=== PATIENT | male | born 1950 | race Caucasian/White ===

== ENCOUNTER 2020-03-09 00:13 | Observation (INO) | payer MEDICARE, SELFPAY ==
[2020-03-09] VITALS (32 sets, daily range): BP systolic 125–169; BP diastolic 52–77; PULSE 47–59; RESP 10–26; TEMP 36.1–36.6; O2SAT 90–100; BMI 55.2
[2020-03-09] MEDS: SODIUM CHLORIDE 0.9% IV 1,000 ML 999 ML IV CONT (01:11)
[2020-03-09] MEDS: ONDANSETRON INJ 4 MG/2 ML VIAL IV PUSH (01:11)
[2020-03-09 01:28] LABS: Basophils Percent Auto 0.3 % (0.2-1.2); Eosinophils Absolute Auto 0.1 K/mm3 (0-0.3); Eosinophils Percent Auto 1.5 % (0-4.4); Hematocrit 29.2 % (42.0-52.0); Hemoglobin 9.8 g/dL (14.0-18.0); Immature Granulocyte Absolute 0.04 K/mm3 (0.00-0.031); Immature Granulocyte Percent A 1.2 % (0-0.5); Immature Platelet Fraction Pct 3.3 % (0.9-11.2); Lymphocytes Absolute Auto 0.53 K/mm3 (0.9-3.2); Lymphocytes Percent Auto 15.5 % (18.3-44.2); Mean Corpuscular HGB Conc 33.6 g/dl (32-36); Mean Corpuscular Volume 89.3 fl (80-100); Mean Platelet Volume 11.1 fl (7.4-10.4); Monocytes Absolute Auto 0.3 K/mm3 (0.1-0.6); Monocytes Percent Auto 8.8 % (2.6-8.5); Neutrophils Absolute Auto 2.5 K/mm3 (1.3-6.7); Neutrophils Percent Auto 72.7 % (45.5-73.1); Platelet Count Result 89 k/mm3 (150-375); Red Blood Count 3.27 M/mm3 (4.6-6.20); White Blood Count 3.4 K/mm3 (4.5-10.0)
[2020-03-09 01:41] LABS: Alanine Aminotransferase 23 U/L (4-50); Albumin Level 3.4 g/dL (3.5-5.1); Alkaline Phosphatase 55 U/L (38-126); Anion Gap 7 mmol/L (8-16); Aspartate Amino Transferase 28 U/L (17-59); Bilirubin,Total 0.3 mg/dL (0.2-1.3); Blood Urea Nitrogen 45 mg/dL (9-20); Calcium 7.8 mg/dL (8.4-10.2); Carbon Dioxide 21 mmol/L (22-30); Chloride 106 mmol/L (98-107); Estimated CRCL calculation 39 ml/min; Estimated Glomerular Filt Rate 27; Glucose 122 mg/dL (75-110); Lipase 153 U/L (23-300); Potassium 4.3 mmol/L (3.4-5.0); Sodium 134 mmol/L (137-145)
--- NOTE | 2020-03-09 02:05 | PC.NURSE ---
Patient's went home to obtain patient's labwork.
--- NOTE | 2020-03-09 03:09 | ED.NAVMDI ---
HPI - Nausea/Vomiting/Diarrhea General Chief complaint: Nausea/Vomiting/Diarrhea Stated complaint: n/v Time Seen by Provider: 03/09/20 00:47 History of Present Illness HPI Narrative: Patient is a 70-year-old male who presents ER with nausea/vomiting/diarrhea. Ongoing for 2 days. Became so weak he was unable to walk or stand this evening. No blood in his stool or emesis. He has not been on antibiotics. No known sick contacts. Patient does have history of chronic kidney disease and sees a safety associate at [facility]. No alleviating factors for his GI symptoms this evening. Related Data Home Medications Medication Instructions Recorded Confirmed atorvastatin 20 mg PO HS 03/09/20 carvedilol 25 mg PO BID 03/09/20 cholecalciferol (vitamin D3) 25 mcg PO DAILY 03/09/20 [Vitamin D3] clonidine HCl 0.1 mg PO DAILY 03/09/20 furosemide 20 mg PO DAILY 03/09/20 lisinopril 40 mg PO DAILY 03/09/20 loperamide [Anti-Diarrheal 2 mg PO PRN 03/09/20 (loperamide)] dlpggwyxmhro-mkv-hbwc-FA-vit K tablet PO 03/09/20 [Adults Multivitamin] omega 9-xrg-iog-fish oil [Fish Oil] 1 cap PO DAILY 03/09/20 spironolactone 50 mg PO QAM 03/09/20 torsemide 40 mg PO QAM 03/09/20 Allergies Allergy/AdvReac Type Severity Reaction Status Date / Time No Known Allergies Allergy Verified 03/09/20 05:26 Review of Systems Review of Systems: All systems reviewed & are unremarkable except as noted in HPI and below Constitutional: Constitutional: Reports weakness Cardiovascular: Cardiovascular: Denies chest pain and Denies leg edema Respiratory: Respiratory: Denies cough and Denies dyspnea Gastrointestinal: Gastrointestinal: Denies abdominal pain, Reports diarrhea, Reports nausea and Reports vomiting PMFSH Past Medical History Medical History (Updated 03/09/20 @ 05:46 by Evaristo Caro MD) Chronic kidney disease Colon cancer Hypercholesterolemia Hypertension Social History Social History (Updated 03/09/20 @ 03:17 by Evaristo Caro MD) Smoking status: Former smoker Gender identity (if verbalized by the patient): Male Exam Narrative: Exam Narrative: GENERAL: Well-appearing, well-nourished, and in no acute distress. HEAD: Normocephalic, atraumatic. EYES: PERRL and EOMI. ENT: Mucous membranes moist. CHEST: Clear to auscultation. No respiratory distress. HEART: Regular rate and rhythm. Normal peripheral pulses. ABDOMEN: Soft, nontender, nondistended. EXTREMITIES: Normal range of motion. No edema. SKIN: Warm, dry, no rash. NEURO: Alert and oriented x3. Course Course Emergency Course: Patient's went home and obtained lab work. Looks like his creatinine typically is 1.5-1.7. Certainly appears patient is an acute renal failure. Will plan admission for hydration. Vital Signs Vital signs: Vital Signs Temperature 97.0 F L 03/09/20 00:13 Pulse Rate 55 L 03/09/20 00:13 Respiratory Rate 18 03/09/20 00:13 Blood Pressure 125/55 L 03/09/20 00:13 Pulse Oximetry 100 03/09/20 00:13 Temperature 97.9 F 03/09/20 05:02 Pulse Rate 56 L 03/09/20 05:02 Respiratory Rate 16 03/09/20 05:02 Blood Pressure 149/64 H 03/09/20 03:55 Pulse Oximetry 97 03/09/20 05:02 MDM - Nausea/Vomiting/Diarrhea Lab Data Result diagrams: 03/09/20 01:20 03/09/20 01:20 Labs: Lab Results 03/09/20 03/09/20 Range/Units 01:20 01:20 WBC 3.4 L (4.5-10.0) K/mm3 RBC 3.27 L (4.6-6.20) M/mm3 Hgb 9.8 L (14.0-18.0) g/dL Hct 29.2 L (42.0-52.0) % MCV 89.3 (80-100) fl MCH 30.0 (26-34) pg MCHC 33.6 (32-36) g/dl RDW 14.0 (11.5-14.5) % Plt Count 89 L (150-375) k/mm3 MPV 11.1 H (7.4-10.4) fl Immature Gran % (Auto) 1.2 H (0-0.5) % Neut % (Auto) 72.7 (45.5-73.1) % Lymph % (Auto) 15.5 L (18.3-44.2) % [place] % (Auto) 8.8 H (2.6-8.5) % Eos % (Auto) 1.5 (0-4.4) % Baso % (Auto) 0.3 (0.2-1.2) % Lymph # (Auto) 0.53 L (0.9
--- NOTE | 2020-03-09 05:18 | ADMGEN ---
This patient, Jonathon Perla, was admitted to Medical Room 348-01. Patient/family oriented to hospital policies and general routines including ID bracelet, bed and alarms, visiting hours, pain management, procedures, bathroom and other care routines, personal items, smoking policy, room service/diet, and visiting hours. Valuables list has been completed. Information on how to activate the Rapid Response Team has been discussed. Patient/Family are encouraged to report perceived risks to care and to ask questions if they do not understand what they are told or what they should do.
[2020-03-09] MEDS: SODIUM CHLORIDE 0.9% IV 1,000 ML 125 ML IV CONT (06:16)
--- NOTE | 2020-03-09 11:00 | PM.IMHP ---
H&P: HPI History of Present Illness Date/Time: 03/09/20 11:00 Chief complaint: Acute on Chronic Renal Failure Narrative: Jonathon Perla is a 70yo male with hx of colon cancer and CKD here for nausea/vomiting/diarrhea. Ongoing for 2 days. Became so weak he was unable to walk or stand this evening. No blood in his stool or emesis. He has not been on antibiotics. No known sick contacts. Patient does have history of chronic kidney disease and sees a recordak operator at [facility]. No alleviating factors for his GI symptoms this evening. Review of Systems Review of Systems: All systems reviewed & are unremarkable except as noted in HPI and below PMFSH Past Medical History Medical History (Updated 03/09/20 @ 05:46 by Evaristo Caro MD) Chronic kidney disease Colon cancer Hypercholesterolemia Hypertension Family History Family History (Updated 03/09/20 @ 05:58 by Melita Howell RN) Father Cancer Heart attack Mother Diabetes mellitus Social History Social History (Updated 03/09/20 @ 03:17 by Evaristo Caro MD) Smoking status: Former smoker Alcohol intake: current Drinks per week: 1 Substance use: never Substance use type: does not use Gender identity (if verbalized by the patient): Male Sexual Orientation (if Verbalized by the Patient): Straight or Heterosexual Spiritual care concerns: No Meds Home Medications and Allergies Home Medications Medication Instructions Recorded Confirmed Type atorvastatin 40 mg PO HS 03/09/20 03/09/20 History carvedilol 25 mg PO BID 03/09/20 03/09/20 History cholecalciferol (vitamin D3) 25 mcg PO DAILY 03/09/20 03/09/20 History [Vitamin D3] clonidine HCl 0.1 mg PO BID 03/09/20 03/09/20 History furosemide 20 mg PO DAILY 03/09/20 03/09/20 History lisinopril 40 mg PO HS 03/09/20 03/09/20 History loperamide [Anti-Diarrheal 2 mg PO DAILY 03/09/20 03/09/20 History (loperamide)] iqbydmlzciyf-qod-obsw-FA-vit K 1 tablet PO DAILY 03/09/20 03/09/20 History [Adults Multivitamin] omega 4-scd-kgb-fish oil [Fish Oil] 1 cap PO DAILY 03/09/20 03/09/20 History spironolactone 50 mg PO QAM 03/09/20 03/09/20 History torsemide 40 mg PO QAM 03/09/20 03/09/20 History Allergies Allergy/AdvReac Type Severity Reaction Status Date / Time No Known Allergies Allergy Verified 03/09/20 05:26 Vital Signs Vital Signs - 24 hr 03/09/20 00:13 03/09/20 00:23 03/09/20 00:30 Temperature 97.0 F L Pulse Rate 55 L 52 L 47 L Respiratory Rate 18 20 10 L Blood Pressure 125/55 L Pulse Oximetry 100 95 90 03/09/20 00:31 03/09/20 00:49 03/09/20 01:00 Temperature Pulse Rate 52 L 52 L 55 L Respiratory Rate 12 16 16 Blood Pressure 130/59 L Pulse Oximetry 98 95 97 03/09/20 01:01 03/09/20 01:11 03/09/20 01:15 Temperature Pulse Rate 52 L 53 L 52 L Respiratory Rate 14 19 17 Blood Pressure 131/60 131/60 Pulse Oximetry 99 95 97 03/09/20 01:31 03/09/20 01:34 03/09/20 01:45 Temperature Pulse Rate 56 L 56 L 55 L Respiratory Rate 10 L 13 15 Blood Pressure 156/69 H Pulse Oximetry 96 97 98 03/09/20 02:00 03/09/20 02:01 03/09/20 02:09 Temperature Pulse Rate 55 L 56 L 54 L Respiratory Rate 16 17 16 Blood Pressure 167/77 H 167/77 H Pulse Oximetry 97 98 97 03/09/20 02:15 03/09/20 02:30 03/09/20 02:31 Temperature Pulse Rate 56 L 56 L 55 L Respiratory Rate 18 17 16 Blood Pressure 169/69 H Pulse Oximetry 96 96 95 03/09/20 02:46 03/09/20 03:02 03/09/20 03:15 Temperature Pulse Rate 55 L 57 L 57 L Respiratory Rate 16 15 15 Blood Pressure Pulse Oximetry 96 99 100 03/09/20 03:32 03/09/20 03:36 03/09/20 03:45 Temperature Pulse Rate 56 L 55 L 53 L Respiratory Rate 20 15 18 Blood Pressure Pulse Oximetry 99 98 97 03/09/20 03:55 03/09/20 04:00 03/09/20 04:15 Temperature Pulse Rate 56 L 54 L 54 L Respiratory Rate 19 26 H 17 Blood Pressure 149/64 H Pulse Oximetry 97 97 97 03/09/20
[2020-03-09 12:08] LABS: Anion Gap 6 mmol/L (8-16); Blood Urea Nitrogen 44 mg/dL (9-20); Calcium 7.5 mg/dL (8.4-10.2); Carbon Dioxide 22 mmol/L (22-30); Chloride 108 mmol/L (98-107); Estimated CRCL calculation 51 ml/min; Estimated Glomerular Filt Rate 33; Glucose 114 mg/dL (75-110); Potassium 4.5 mmol/L (3.4-5.0); Sodium 136 mmol/L (137-145)
--- NOTE | 2020-03-09 12:46 | PM.SD ---
Same Day Admit/Disch: HPI History of Present Illness Chief complaint: Acute on Chronic Renal Failure Narrative: Jonathon Perla is a 70 year old male with history of colon cancer and CKD who is here for nausea, vomiting and diarrhea. Patient has not been feeling well for the past 2-3 days. He has been having nasal congestion and malaise. No fever or chills. No COVID exposure. No anosmia or dysgusia. He has a history of colon cancer with his last colonoscopy was 2 years ago. He did have a slight cough at 1 point but he took cold medicines for this and that resolved. No sick contacts. Last evening patient developed nausea, vomiting and diarrhea. Had multiple episodes of emesis with culminating to dry heaves. He had about 5 bowel movements. No melena or hematochezia. No hematemesis. He has not been on antibiotics recently. He felt very weak. He does have CKD and is on diuretics. He was supposed to be switched from furosemide to torsemide but he states that he has been taking both of these diuretics. Because of the above symptoms patient presented to the emergency room for evaluation. He sees Dr Turpin from [facility] Past Medical History Medical History Chronic kidney disease Colon cancer with resection then XRT and chemo Hypercholesterolemia Hypertension Surgical History Surgical History History of partial surgical removal of colon partial colon resection from 2009 with colostomy that was reversed 6 months later. Family History Family History Father Cancer Heart attack Mother Diabetes mellitus Social History Social History (Updated 03/09/20 @ 13:02 by Jacobo De La Torre MD) Social History: Smoked up to 3ppd before quitting in 2004. Occasional alcohol use. No drug use. Lives with his . Full code. He nominated his to be the individual would make medical decisions for him if he is not able. Smoking status: Former smoker Alcohol intake: current Drinks per week: 1 Substance use: never Substance use type: does not use Gender identity (if verbalized by the patient): Male Sexual Orientation (if Verbalized by the Patient): Straight or Heterosexual Spiritual care concerns: No Same Day Admit/Disch: Med Pre-admit Medications Home Medications Medication Instructions Recorded Confirmed Type atorvastatin 40 mg PO HS 03/09/20 03/09/20 History carvedilol 25 mg PO BID 03/09/20 03/09/20 History cholecalciferol (vitamin D3) 25 mcg PO DAILY 03/09/20 03/09/20 History [Vitamin D3] clonidine HCl 0.1 mg PO BID 03/09/20 03/09/20 History furosemide 20 mg PO DAILY 03/09/20 03/09/20 History lisinopril 40 mg PO HS 03/09/20 03/09/20 History loperamide [Anti-Diarrheal 2 mg PO DAILY 03/09/20 03/09/20 History (loperamide)] htfblktjmezz-wkq-mvfy-FA-vit K 1 tablet PO DAILY 03/09/20 03/09/20 History [Adults Multivitamin] omega 7-wxh-vux-fish oil [Fish Oil] 1 cap PO DAILY 03/09/20 03/09/20 History spironolactone 50 mg PO QAM 03/09/20 03/09/20 History torsemide 40 mg PO QAM 03/09/20 03/09/20 History Exam Narrative: Exam Narrative: AF 97.3 153/52 59 20 99% ra Gen - well-nourished, well-developed male in no acute respiratory distress who is nontoxic-appearing lying semi recumbent in bed HEENT - normocephalic. Atraumatic. Pupils equal round and reactive. Extraocular motions intact. Sclera clear and anicteric. Nares patent. Oropharynx was clear. No oral lesions. Moist mucous membranes. Tongue was midline. Palate todd symmetrically. No facial asymmetry. Neck - neck was thick but supple. No dominant adenopathy, thyromegaly or masses. 2+ carotid upstrokes without bruits. Chest - lungs are clear to auscultation bilaterally. No wheezes or crackles. Breast exam was deferred. CV - heart was regular rate and rhyt
== END 2020-03-09 14:30 | disposition home or self-care (01) ==
LOC: ANHED 01:13 → ANH3MED 05:05
PROVIDERS: Admitting Provider Internal Medicine; Emergency Provider Emergency Medicine; PCP Internal Medicine; Visit Provider Internal Medicine
DX: N17.9 Acute kidney failure, unspecified (principal); I12.9 Hypertensive chronic kidney disease with stage 1 through stage 4 chronic kidney disease, or unspecified chronic kidney disease; N18.9 Chronic kidney disease, unspecified; D61.818 Other pancytopenia; E78.00 Pure hypercholesterolemia, unspecified; Z79.899 Other long term (current) drug therapy; Z85.038 Personal history of other malignant neoplasm of large intestine; Z87.891 Personal history of nicotine dependence; Z92.21 Personal history of antineoplastic chemotherapy; Z92.3 Personal history of irradiation
CPT/HCPCS: 36415; 80048; 80053; 83690; 85025; 85055; 96361; 96374; 99285; G0378; J2405; J7030

== ENCOUNTER 2022-09-22 00:39 | Day surgery (SDC) | payer MEDICARE, SELFPAY ==
[2022-09-08 12:56] VITALS: BMI 54.8
--- NOTE | 2022-09-21 12:55 | PM.HPGS ---
History of Present Illness History of Present Illness Consent: Risks, benefits, and alternatives have been discussed and questions answered. Patient agrees to proceed with procedure. Chief complaint: hx colon polyps Narrative: Jonathon Perla is a 72 year old male who was referred for colon cancer screening. His last colonoscopy was 5 years ago. He has a history of having had colon cancer resected Review of Systems Review of Systems: All systems reviewed & are unremarkable except as noted in HPI and below PMFSH Past Medical History Medical History Chronic kidney disease Colon cancer with resection then XRT and chemo Hypercholesterolemia Hypertension Surgical History Surgical History History of partial surgical removal of colon partial colon resection from 2009 with colostomy that was reversed 6 months later. Family History Family History Father Cancer Heart attack Mother Diabetes mellitus Social History Social History Social History: Smoked up to 3ppd before quitting in 2004. Occasional alcohol use. No drug use. Lives with his . Full code. He nominated his to be the individual would make medical decisions for him if he is not able. Smoking status: Former smoker Tobacco type: cigarettes Alcohol intake: former Drinks per week: 1 Substance use: never Substance use type: does not use Living arrangements: with family Gender identity (if verbalized by the patient): Male Sexual Orientation (if Verbalized by the Patient): Straight or Heterosexual Spiritual care concerns: No Meds Home Medications and Allergies Home Medications Medication Instructions Recorded Confirmed Type atorvastatin 20 mg tablet 80 mg PO HS 03/09/20 09/08/22 History carvedilol 25 mg tablet 25 mg PO BID 03/09/20 09/22/22 History cholecalciferol (vitamin D3) 25 25 mcg PO DAILY 03/09/20 09/08/22 History mcg (1,000 unit) capsule (Vitamin D3) lisinopril 40 mg tablet 40 mg PO HS 03/09/20 09/08/22 History multivit with minerals-iron 18 1 tablet PO DAILY 03/09/20 09/08/22 History mg-folic ac 400 mcg-vit K 25 mcg tablet (Adults Multivitamin) spironolactone 50 mg tablet 100 mg PO QAM 03/09/20 09/08/22 History levothyroxine 50 mcg tablet 50 mcg PO DAILY 03/01/22 09/22/22 History magnesium oxide 400 mg (241.3 mg 400 mg PO DAILY 03/01/22 09/08/22 History magnesium) tablet nifedipine 30 mg tablet,extended 60 mg PO DAILY 03/01/22 09/08/22 History release chlorthalidone 25 mg tablet 25 mg PO DAILY 09/08/22 09/08/22 History pantoprazole 40 mg tablet,delayed 40 mg PO QAM 09/08/22 09/08/22 History release Allergies Allergy/AdvReac Type Severity Reaction Status Date / Time No Known Allergies Allergy Verified 09/22/22 06:21 Exam Resp: Auscultation: clear to auscultation bilaterally Cardio: Rate: regular rate Rhythm: regular rhythm GI: GI Palp: Yes Soft to palpation and No Tenderness to palpation present (GI) Assessment and Plan Assessment and plan (1) Colon cancer screening: Code(s): Z12.11 - Encounter for screening for malignant neoplasm of colon Status: Acute Assessment and Plan: Colonoscopy with possible biopsy or polypectomy or cautery or injection of substances.
[2022-09-22 06:24] VITALS: BMI 52.8
[2022-09-22] MEDS: LACTATED RINGERS 1,000 ML 150 ML IV CONT (06:40)
[2022-09-22 06:41] VITALS: BP 187/74; PULSE 72; RESP 18; TEMP 36.1; O2SAT 99
--- NOTE | 2022-09-22 07:03 | WPDANESEPPF ---
Anes - Initial Pre Proc Eval Procedure: Operation Date: 09/22/22 07:30 Proposed Procedures p Colonoscopy - Nasir Hernandez MD Date/Time: 09/22/22 07:03 Surgeon: Nasir Hernandez MD Pre Op Diagnosis: hx colon polyps Patient Data Age: 72 Gender: M Height: 1.7 m Weight: 153.1 kg Last Vital Signs Temp 36.1 C L 09/22/22 06:41 Pulse 72 09/22/22 06:41 Resp 18 09/22/22 06:41 BP 187/74 H 09/22/22 06:41 Pulse Ox 99 09/22/22 06:41 O2 Del Method Room Air 09/22/22 06:41 Allergies Allergy/AdvReac Type Severity Reaction Status Date / Time No Known Allergies Allergy Verified 09/22/22 06:21 Home Medications Medication Instructions Recorded Confirmed Type atorvastatin 20 mg tablet 80 mg PO HS 03/09/20 09/08/22 History carvedilol 25 mg tablet 25 mg PO BID 03/09/20 09/22/22 History cholecalciferol (vitamin D3) 25 25 mcg PO DAILY 03/09/20 09/08/22 History mcg (1,000 unit) capsule (Vitamin D3) lisinopril 40 mg tablet 40 mg PO HS 03/09/20 09/08/22 History multivit with minerals-iron 18 1 tablet PO DAILY 03/09/20 09/08/22 History mg-folic ac 400 mcg-vit K 25 mcg tablet (Adults Multivitamin) spironolactone 50 mg tablet 100 mg PO QAM 03/09/20 09/08/22 History levothyroxine 50 mcg tablet 50 mcg PO DAILY 03/01/22 09/22/22 History magnesium oxide 400 mg (241.3 mg 400 mg PO DAILY 03/01/22 09/08/22 History magnesium) tablet nifedipine 30 mg tablet,extended 60 mg PO DAILY 03/01/22 09/08/22 History release chlorthalidone 25 mg tablet 25 mg PO DAILY 09/08/22 09/08/22 History pantoprazole 40 mg tablet,delayed 40 mg PO QAM 09/08/22 09/08/22 History release Results Review: All pre-operative results and documents have been reviewed as part of the pre-operative evaluation. [facility] Past Medical History Medical History (Updated 09/21/22 @ 12:56 by Nasir Hernandez MD) Chronic kidney disease Colon cancer with resection then XRT and chemo Hypercholesterolemia Hypertension Surgical History Surgical History History of partial surgical removal of colon partial colon resection from 2009 with colostomy that was reversed 6 months later. Family History Family History Father Cancer Heart attack Mother Diabetes mellitus Social History Social History Social History: Smoked up to 3ppd before quitting in 2004. Occasional alcohol use. No drug use. Lives with his . Full code. He nominated his to be the individual would make medical decisions for him if he is not able. Smoking status: Former smoker Tobacco type: cigarettes Alcohol intake: former Drinks per week: 1 Substance use: never Substance use type: does not use Living arrangements: with family Gender identity (if verbalized by the patient): Male Sexual Orientation (if Verbalized by the Patient): Straight or Heterosexual Spiritual care concerns: No Anes - Eval Final PreProcedure Day of Procedure 09/22/22 07:03 Patient weight: super morbidly obese Heart: regular rate and rhythm Lungs: clear to auscultation Airway: Mallampati scale class II Neurological: alert and oriented Last oral intake: >/= 8 hours ASA classification: III Emergent: no Anesthetic plan: proceed Anesthesia type and monitoring: general GIVS and standard monitoring Results Review: All pre-operative results and documents have been reviewed as part of the pre-operative evaluation. Informed Consent: The patient's anesthetic plan and its attendant risks and benefits were discussed with the patient/family/POA. Questions were solicited and answers provided to the satisfaction of the patient/family/POA.
--- NOTE | 2022-09-22 07:18 | WPDANESEPPF ---
Anes - Initial Pre Proc Eval Procedure: Operation Date: 09/22/22 07:30 Proposed Procedures p Colonoscopy - Nasir Hernandez MD Date/Time: 09/22/22 07:18 Surgeon: Nasir Hernandez MD Pre Op Diagnosis: hx colon polyps Patient Data Age: 72 Gender: M Height: 1.7 m Weight: 153.1 kg Last Vital Signs Temp 96.9 F L 09/22/22 06:41 Pulse 72 09/22/22 06:41 Resp 18 09/22/22 06:41 BP 187/74 H 09/22/22 06:41 Pulse Ox 99 09/22/22 06:41 O2 Del Method Room Air 09/22/22 06:41 Allergies Allergy/AdvReac Type Severity Reaction Status Date / Time No Known Allergies Allergy Verified 09/22/22 06:21 Home Medications Medication Instructions Recorded Confirmed Type atorvastatin 20 mg tablet 80 mg PO HS 03/09/20 09/08/22 History carvedilol 25 mg tablet 25 mg PO BID 03/09/20 09/22/22 History cholecalciferol (vitamin D3) 25 25 mcg PO DAILY 03/09/20 09/08/22 History mcg (1,000 unit) capsule (Vitamin D3) lisinopril 40 mg tablet 40 mg PO HS 03/09/20 09/08/22 History multivit with minerals-iron 18 1 tablet PO DAILY 03/09/20 09/08/22 History mg-folic ac 400 mcg-vit K 25 mcg tablet (Adults Multivitamin) spironolactone 50 mg tablet 100 mg PO QAM 03/09/20 09/08/22 History levothyroxine 50 mcg tablet 50 mcg PO DAILY 03/01/22 09/22/22 History magnesium oxide 400 mg (241.3 mg 400 mg PO DAILY 03/01/22 09/08/22 History magnesium) tablet nifedipine 30 mg tablet,extended 60 mg PO DAILY 03/01/22 09/08/22 History release chlorthalidone 25 mg tablet 25 mg PO DAILY 09/08/22 09/08/22 History pantoprazole 40 mg tablet,delayed 40 mg PO QAM 09/08/22 09/08/22 History release Patient hx anesthesia problems: none Family hx anesthesia problems: none Results Review: All pre-operative results and documents have been reviewed as part of the pre-operative evaluation. [facility] Past Medical History Medical History (Updated 09/21/22 @ 12:56 by Nasir Hernandez MD) Chronic kidney disease Colon cancer with resection then XRT and chemo Hypercholesterolemia Hypertension Surgical History Surgical History History of partial surgical removal of colon partial colon resection from 2009 with colostomy that was reversed 6 months later. Family History Family History Father Cancer Heart attack Mother Diabetes mellitus Social History Social History Social History: Smoked up to 3ppd before quitting in 2004. Occasional alcohol use. No drug use. Lives with his . Full code. He nominated his to be the individual would make medical decisions for him if he is not able. Smoking status: Former smoker Tobacco type: cigarettes Alcohol intake: former Drinks per week: 1 Substance use: never Substance use type: does not use Living arrangements: with family Gender identity (if verbalized by the patient): Male Sexual Orientation (if Verbalized by the Patient): Straight or Heterosexual Spiritual care concerns: No Anes - Eval Final PreProcedure Day of Procedure 09/22/22 07:18 Patient weight: super morbidly obese Airway: Mallampati scale class III ASA classification: III Anesthesia type and monitoring: general GIVS and standard monitoring Results Review: All pre-operative results and documents have been reviewed as part of the pre-operative evaluation. Informed Consent: The patient's anesthetic plan and its attendant risks and benefits were discussed with the patient/family/POA. Questions were solicited and answers provided to the satisfaction of the patient/family/POA.
--- NOTE | 2022-09-22 07:20 | WPDANESEPPF ---
Anes - Initial Pre Proc Eval Procedure: Operation Date: 09/22/22 07:30 Proposed Procedures p Colonoscopy - Nasir Hernandez MD Date/Time: 09/22/22 07:20 Surgeon: Nasir Hernandez MD Pre Op Diagnosis: hx colon polyps Patient Data Age: 72 Gender: M Height: 1.7 m Weight: 153.1 kg Last Vital Signs Temp 96.9 F L 09/22/22 06:41 Pulse 72 09/22/22 06:41 Resp 18 09/22/22 06:41 BP 187/74 H 09/22/22 06:41 Pulse Ox 99 09/22/22 06:41 O2 Del Method Room Air 09/22/22 06:41 Allergies Allergy/AdvReac Type Severity Reaction Status Date / Time No Known Allergies Allergy Verified 09/22/22 06:21 Home Medications Medication Instructions Recorded Confirmed Type atorvastatin 20 mg tablet 80 mg PO HS 03/09/20 09/08/22 History carvedilol 25 mg tablet 25 mg PO BID 03/09/20 09/22/22 History cholecalciferol (vitamin D3) 25 25 mcg PO DAILY 03/09/20 09/08/22 History mcg (1,000 unit) capsule (Vitamin D3) lisinopril 40 mg tablet 40 mg PO HS 03/09/20 09/08/22 History multivit with minerals-iron 18 1 tablet PO DAILY 03/09/20 09/08/22 History mg-folic ac 400 mcg-vit K 25 mcg tablet (Adults Multivitamin) spironolactone 50 mg tablet 100 mg PO QAM 03/09/20 09/08/22 History levothyroxine 50 mcg tablet 50 mcg PO DAILY 03/01/22 09/22/22 History magnesium oxide 400 mg (241.3 mg 400 mg PO DAILY 03/01/22 09/08/22 History magnesium) tablet nifedipine 30 mg tablet,extended 60 mg PO DAILY 03/01/22 09/08/22 History release chlorthalidone 25 mg tablet 25 mg PO DAILY 09/08/22 09/08/22 History pantoprazole 40 mg tablet,delayed 40 mg PO QAM 09/08/22 09/08/22 History release Patient hx anesthesia problems: none Family hx anesthesia problems: none Results Review: All pre-operative results and documents have been reviewed as part of the pre-operative evaluation. [facility] Past Medical History Medical History (Updated 09/21/22 @ 12:56 by Nasir Hernandez MD) Chronic kidney disease Colon cancer with resection then XRT and chemo Hypercholesterolemia Hypertension Surgical History Surgical History History of partial surgical removal of colon partial colon resection from 2009 with colostomy that was reversed 6 months later. Family History Family History Father Cancer Heart attack Mother Diabetes mellitus Social History Social History Social History: Smoked up to 3ppd before quitting in 2004. Occasional alcohol use. No drug use. Lives with his . Full code. He nominated his to be the individual would make medical decisions for him if he is not able. Smoking status: Former smoker Tobacco type: cigarettes Alcohol intake: former Drinks per week: 1 Substance use: never Substance use type: does not use Living arrangements: with family Gender identity (if verbalized by the patient): Male Sexual Orientation (if Verbalized by the Patient): Straight or Heterosexual Spiritual care concerns: No Anes - Eval Final PreProcedure Day of Procedure 09/22/22 07:20 Patient weight: super morbidly obese Heart: regular rate and rhythm Lungs: clear to auscultation Airway: Mallampati scale class III Neurological: alert and oriented Last oral intake: >/= 8 hours ASA classification: III Emergent: no Anesthetic plan: proceed Anesthesia type and monitoring: general GIVS and standard monitoring Results Review: All pre-operative results and documents have been reviewed as part of the pre-operative evaluation. Informed Consent: The patient's anesthetic plan and its attendant risks and benefits were discussed with the patient/family/POA. Questions were solicited and answers provided to the satisfaction of the patient/family/POA.
[2022-09-22] MEDS: SIMETHICONE ORAL SUSPENSION 20 MG/0.3 ML 30 ML BOTTLE 0.6 ML IRRIGATION (07:32)
[2022-09-22 07:38] VITALS: BP 134/79; PULSE 61; RESP 18; O2SAT 99
[2022-09-22 07:48] VITALS: BP 146/74; PULSE 66; RESP 15; O2SAT 99
[2022-09-22 07:58] VITALS: BP 165/93; PULSE 61; RESP 23; O2SAT 99
--- NOTE | 2022-09-22 08:08 | SUR.OPER ---
Patient received 300mls of LR intraoperatively.
== END 2022-09-22 08:02 | disposition home or self-care (01) ==
PROVIDERS: PCP Internal Medicine; Visit Provider Internal Medicine Gastroenterology
PROC: 0DJD8ZZ Inspection of Lower Intestinal Tract, Via Natural or Artificial Opening Endoscopic (ICD-10-PCS; CPT 45378; principal; 2022-09-22 07:30)
DX: Z12.11 Encounter for screening for malignant neoplasm of colon (principal); D12.3 Benign neoplasm of transverse colon; Z98.0 Intestinal bypass and anastomosis status; Z85.048 Personal history of other malignant neoplasm of rectum, rectosigmoid junction, and anus; Z90.49 Acquired absence of other specified parts of digestive tract; I12.9 Hypertensive chronic kidney disease with stage 1 through stage 4 chronic kidney disease, or unspecified chronic kidney disease; N18.9 Chronic kidney disease, unspecified; E78.00 Pure hypercholesterolemia, unspecified; Z92.21 Personal history of antineoplastic chemotherapy; Z92.3 Personal history of irradiation; Z87.891 Personal history of nicotine dependence; E66.01 Morbid (severe) obesity due to excess calories; Z68.43 Body mass index [BMI] 50.0-59.9, adult
CPT/HCPCS: 45380; 88305; J2704; J7120

== ENCOUNTER 2023-02-03 15:25 | Outpatient (CLI) | payer MEDICARE, SELFPAY ==
--- NOTE | ~2023-02-03 | MR_ITS ---
MRI of the abdomen: Clinical indication: Liver lesion. Technique: Coronal SSFSE ARC, WATER:coronal LAVA-FLEX, Coronal 2D FIESTA FatSat, Axial SSFSE BH ARC, Axial 3D DualEcho BH, Axial SSFSE-IR, Axial DWI b=500, Axial 2D FIESTA FatSat, pre and dynamic postco ntrast Axial LAVA ARC, postcontrast Coronal In and Opposed phase LAVA FLEX. Following intravenous adm inistration of 20 cc MultiHance gadolinium, T1-weighted fat-sat imaging was performed in the axial an d coronal planes. Findings: Gallbladder is unremarkable. The common bile duct is normal in course and caliber. No filli ng defects are seen within the CBD. No evidence of intrahepatic biliary ductal dilatation. The pancre atic duct is normal in size. In the posterior right hepatic lobe, there is a 14 mm slightly lobulated T1 hypointense, T2 markedly hyperintense lesion (series 7 image 9), which demonstrates homogeneous avid, persistent postcontrast enhancement, essentially equivalent to the surrounding vasculature within the liver. Spleen, pancreas, adrenals, kidneys appear normal. The aorta and the paraaortic regions appear normal . Impression: 14 mm posterior right hepatic lobe lesion, as detailed above, with imaging characteristics most sugge stive of small incidental portosystemic vascular shunt. Reviewed, dictated and finalized at [facility]. Impression: 14 mm posterior right hepatic lobe lesion, as detailed above, with imaging ghulam acteristics most suggestive of small incidental portosystemic vascular shunt.
== END 2023-02-03 15:26 | disposition home or self-care (01) ==
LOC: ANHIMG 15:27
PROVIDERS: PCP Internal Medicine; Visit Provider Internal Medicine
DX: R93.89 Abnormal findings on diagnostic imaging of other specified body structures (principal)
CPT/HCPCS: 74183; A9577

== ENCOUNTER 2025-06-18 12:34 | Outpatient (CLI) | payer MEDICARE, SELFPAY ==
--- NOTE | ~2025-06-18 | XR_ITS ---
EXAMINATION: XR foot LT min 3V, 06/18/2025 12:55 [facility] HISTORY: Bilateral foot pain COMPARISON: No comparisons available. Findings: No acute fracture or malalignment. Large calcaneal spur. Soft tissues unremarkable. Impression: No acute fracture or malalignment. Reviewed, dictated and finalized at location [facility] Impression: No acute fracture or malalignment.
--- NOTE | ~2025-06-18 | XR_ITS ---
EXAMINATION: XR foot RT min 3V, 06/18/2025 12:55 [facility] HISTORY: Bilateral foot pain COMPARISON: No comparisons available. Findings: No acute fracture or malalignment. No significant degenerative changes. Soft tissues unremarkable. Impression: No acute fracture or malalignment. Reviewed, dictated and finalized at location [facility] Impression: No acute fracture or malalignment.
== END 2025-06-18 12:35 | disposition home or self-care (01) ==
LOC: MICIMG 12:35
PROVIDERS: PCP Internal Medicine; Visit Provider Podiatrist Foot & Ankle Surgery
DX: M79.672 Pain in left foot (principal); M79.671 Pain in right foot
CPT/HCPCS: 73630